=== PATIENT | female | born 1975 | race Caucasian/White ===

== ENCOUNTER 2016-08-14 10:53 | Day surgery (SDC) | payer BC ==
--- NOTE | ~2016-08-14 | EGD ---
EGD REPORT [facility] [address] [address] NAME: RU MC : 71 STATUS : REG [facility]#: [id number] AGE: 40 ADM/REG DATE : 08/14/16 MR#: [id number] REPORT SERV DATE: 08/14/16 DICTATED BY: DATE: REPORT STATUS : Draft TRANSCRIBED BY: [employer] DATE: 08/14/16 Endoscopy Center Patient Name: Ru Mc Date of : 1975 Attending MD: ABDULKADIR MCBRIDE MD Procedure Date No Time: 08/14/2016 Procedure: Colonoscopy Indications: Abdominal pain in the left upper quadrant, Abdominal pain in the right lower quadrant, Clinically significant diarrhea of unexplained origin, Change in bowel habits, Constipation, Diarrhea Referring MD: Whitley Delgado Medicines: Monitored Anesthesia Care Complications: No immediate complications. Procedure: Pre-Anesthesia Assessment: - ASA Grade Assessment: II - A patient with mild systemic disease. After I obtained informed consent, the scope was passed under direct vision. Throughout the procedure, the patient's blood pressure, pulse, and oxygen saturations were monitored continuously. The [facility] [id number] was introduced through the anus and advanced to the terminal ileum, with identification of the appendiceal orifice and IC valve. The colonoscopy was performed without difficulty. The patient tolerated the procedure well. The quality of the bowel preparation was good. Findings: The digital rectal exam was normal. Pertinent negatives include no palpable rectal lesions. The terminal ileum appeared normal. Hemorrhoids were found during retroflexion and were mild. The ascending colon appeared normal. Biopsies were taken with a cold forceps for evaluation of microscopic colitis. The sigmoid colon appeared normal. Biopsies were taken with a cold forceps for evaluation of microscopic colitis. Impression: - The examined portion of the ileum was normal. - Hemorrhoids. - The ascending colon is normal. Biopsied. - The sigmoid colon is normal. Biopsied. Recommendation: - Patient has a contact number available for emergencies. The signs and symptoms of potential delayed complications were discussed with the patient. Return to EGD REPORT [address] [address] NAME: RU MC : 71 STATUS : REG [facility]#: [id number] AGE: 40 ADM/REG DATE : 08/14/16 MR#: [id number] REPORT SERV DATE: 08/14/16 DICTATED BY: DATE: REPORT STATUS : Draft TRANSCRIBED BY: [employer] DATE: 08/14/16 normal activities tomorrow. Written discharge instructions were provided to the patient. - Regular diet. - Continue present medications. - Await pathology results. - Return to GI clinic in 1 month. Procedure Code(s): --- Professional --- 62465, Colonoscopy, flexible, proximal to splenic flexure; with biopsy, single or multiple Diagnosis Code(s): --- Professional --- K64.9, Unspecified hemorrhoids R10.12, Left upper quadrant pain R10.31, Right lower quadrant pain R19.7, Diarrhea, unspecified R19.4, Change in bowel habit K59.00, Constipation, unspecified CPT copyright 2013 [employer]. All rights reserved. The codes documented in this report are preliminary and upon claims manager review may be revised to meet current compliance requirements. ABDULKADIR MCBRIDE MD 08/14/2016 1:14 PM This report has been signed electronically. Number of Addenda: 0 Note Initiated On: 08/14/2016 12:37 PM Scope Withdrawal Time 0 hours 7 minutes 16 seconds [address] [id number]
--- NOTE | ~2016-08-14 | EGD ---
EGD REPORT [facility] [address] [address] NAME: RU MC : 71 STATUS : REG [facility]#: [id number] AGE: 40 ADM/REG DATE : 08/14/16 MR#: [id number] REPORT SERV DATE: 08/14/16 DICTATED BY: ABDULKADIR MCBRIDE DATE: 08/14/16 REPORT STATUS : Draft [facility]ANS[facility]IBED [facility]: [facility] DATE: 08/14/16 Endoscopy Center Patient Name: Ru Mc Date of : 1975 Attending MD: ABDULKADIR MCBRIDE MD Procedure Date No Time: 08/14/2016 Procedure: Upper GI endoscopy Indications: Abdominal pain in the left upper quadrant Referring MD: Whitley Delgado Medicines: Monitored Anesthesia Care Complications: No immediate complications. Procedure: Pre-Anesthesia Assessment: - ASA Grade Assessment: II - A patient with mild systemic disease. - ASA Grade Assessment: II - A patient with mild systemic disease. After obtaining informed consent, the endoscope was passed under direct vision. Throughout the procedure, the patient's blood pressure, pulse, and oxygen saturations were monitored continuously. The [facility] H190 [id number] was introduced through the mouth, and advanced to the second part of duodenum. The upper GI endoscopy was accomplished without difficulty. The patient tolerated the procedure well. Findings: The examined esophagus was normal. The Z-line was irregular and was found at the gastroesophageal junction. Biopsies were taken with a cold forceps for histology. Striped mildly erythematous mucosa without bleeding was found in the gastric antrum. Biopsies were taken with a cold forceps for histology. The duodenal bulb and 2nd part of the duodenum were normal. Biopsies were taken with a cold forceps for histology. The cardia and gastric fundus were normal on retroflexion. Impression: - Normal esophagus. - Z-line irregular, at the gastroesophageal junction. Biopsied. - Erythematous mucosa in the antrum. Biopsied. - Normal duodenal bulb and 2nd part of the duodenum. Biopsied. Recommendation: - Await pathology results. - Follow an antireflux regimen. EGD REPORT [facility] [address] [address] NAME: RU MC : 71 STATUS : REG [facility]#: [id number] AGE: 40 ADM/REG DATE : 08/14/16 MR#: [id number] REPORT SERV DATE: 08/14/16 DICTATED BY: ABDULKADIR MCBRIDE DATE: 08/14/16 REPORT STATUS : Draft TRANSCRIBED BY: [employer] DATE: 08/14/16 Procedure Code(s): --- Professional --- 13311, Esophagogastroduodenoscopy, flexible, transoral; with biopsy, single or multiple Diagnosis Code(s): --- Professional --- K22.8, Other specified diseases of esophagus K31.9, Disease of stomach and duodenum, unspecified R10.12, Left upper quadrant pain CPT copyright 2013 [employer]. All rights reserved. The codes documented in this report are preliminary and upon compounder flavorings review may be revised to meet current compliance requirements. ABDULKADIR MCBRIDE MD 08/14/2016 12:59 PM This report has been signed electronically. Number of Addenda: 0 Note Initiated On: 08/14/2016 12:34 PM Scope Withdrawal Time 0 hours 0 minutes 0 seconds [address] [id number]
[~2016-08-14 10:53] MED LIST: ADDER10 PO; ADDERALL20 MG PO; ADDERALL30 MG PO; ADVIL PO; AMITIZA24 PO; AMITIZA8 MCG PO; ARMOUR THYRO60 MG PO; AT25 PO; BUSPAR10 PO; BUSPAR15 M1 PO; FLINSTONE VITAMINS; HCTZ25B PO; HYDROCHLOROT25 MG PO; HYDROCHLOROT50 MG PO; IBU400 PO; IBU600 PO; IBU800 PO; IMITREX50 PO; LIDODERM TOP; LOP25 PO; LORT7 PO; LORTAB10 PO; MACROBID PO; MAXIMUM D3 PO; MOTRIN IB200 MG PO; NEXIUM40 PO; OXYCONTIN15 MG PO; PERCOCET 10/3251 TAB PO; PERCOCET1 TA4 PO; PERCOCET1 TA5 PO; PLAQ200B PO; PROVHFA INH; PYR200 PO; REQUIP5 PO; SKELAXIN8 PO; SYMBICORT 80/4.1 INH INH; SYN.05 PO; SYN075 PO; TOPAMAX100 PO; TOPAMAX25 PO; TORATAB PO; VALIUM10 MG PO; VITAMIN C OTC PO; VYVANSE70 MG OR; ZESTORETIC1 TAB PO; ZOFRAN8 PO; ZOL100 PO; ZOL50 PO
[2017-01-21] MEDS ORDERED: ADDERALL20 MG PO (06:49)
[2017-01-21] MEDS ORDERED: ARMOUR THYRO60 MG PO (06:49)
[2017-01-21] MEDS ORDERED: BUSPAR15 M1 PO (06:51)
[2017-01-21] MEDS ORDERED: VALIUM10 MG PO (06:51)
[2017-01-21] MEDS ORDERED: PERCOCET 10/3251 TAB PO (06:52)
[2017-01-21] MEDS ORDERED: OXYCONTIN15 MG PO (06:52)
[2017-01-21] MEDS ORDERED: ZOL100 PO (06:54)
[2017-01-22] MEDS ORDERED: ATEN25 PO (07:49)
[2017-01-22] MEDS ORDERED: ZOFRAN8 PO (07:52)
[2017-01-22] MEDS ORDERED: AUG875 PO (07:53)
[2017-01-22] MEDS ORDERED: TOPAMAX100 PO (08:00)
[2017-01-22] MEDS ORDERED: IMITREX50 PO (08:01)
[2017-01-22] MEDS ORDERED: CALCIUM +VIT D PO (08:02)
[2017-01-22] MEDS ORDERED: VITAMIN D PO (08:03)
[2017-01-22] MEDS ORDERED: NEXIUM40 PO (08:04)
[2017-01-22] MEDS ORDERED: IBU600 PO (08:04)
[2017-01-22] MEDS ORDERED: PROVHFA INH (08:05)
[2017-01-22] MEDS ORDERED: MULTIVIT/MIN PO (08:06)
[2017-01-22] MEDS ORDERED: PLAQ200B PO (08:07)
[2017-01-22] MEDS ORDERED: MOVANTIK25 MG PO (08:15)
== END 2016-08-14 23:59 | disposition home health service (06) ==
LOC: DMU 10:53
PROVIDERS: Internal Medicine Gastroenterology
PROC: 0DB48ZX Excision of Esophagogastric Junction, Via Natural or Artificial Opening Endoscopic, Diagnostic (ICD-10-PCS; 2016-08-14)
PROC: 0DB98ZX Excision of Duodenum, Via Natural or Artificial Opening Endoscopic, Diagnostic (ICD-10-PCS; 2016-08-14)
PROC: 0DB68ZX Excision of Stomach, Via Natural or Artificial Opening Endoscopic, Diagnostic (ICD-10-PCS; 2016-08-14)
PROC: 0DBN8ZX Excision of Sigmoid Colon, Via Natural or Artificial Opening Endoscopic, Diagnostic (ICD-10-PCS; principal; 2016-08-14 11:30)
PROC: 0DBK8ZX Excision of Ascending Colon, Via Natural or Artificial Opening Endoscopic, Diagnostic (ICD-10-PCS; 2016-08-14 11:30)
DX: K29.80 Duodenitis without bleeding (principal); K29.50 Unspecified chronic gastritis without bleeding; K64.9 Unspecified hemorrhoids; G43.909 Migraine, unspecified, not intractable, without status migrainosus; I47.1 Supraventricular tachycardia; F90.9 Attention-deficit hyperactivity disorder, unspecified type; E03.9 Hypothyroidism, unspecified; R56.9 Unspecified convulsions; I10 Essential (primary) hypertension; K21.0 Gastro-esophageal reflux disease with esophagitis; J45.909 Unspecified asthma, uncomplicated; Z87.442 Personal history of urinary calculi; Z88.2 Allergy status to sulfonamides; Z90.49 Acquired absence of other specified parts of digestive tract; Z88.5 Allergy status to narcotic agent; Z88.8 Allergy status to other drugs, medicaments and biological substances
CPT/HCPCS: 88305

== ENCOUNTER 2016-10-29 16:03 | Observation (INO) | payer BC ==
--- NOTE | ~2016-10-29 | PRECARD ---
H&P [address] [place]. [address] NAME: RU JAMES : [birth year] STATUS : ADM Edvin PAT#: [id number] AGE: 41 ADM/REG DATE : 10/29/16 MR#: [id number] REPORT SERV DATE: 10/30/16 DICTATED BY: ALEK PANIAGUA DATE: 10/30/16 REPORT STATUS : Draft TRANSCRIBED BY: [employer] DATE: 10/30/16 DATE OF ADMISSION: 10/29/2016 The patient is a 41-year-old white female who presented to the emergency room with a complaint of oppressive substernal chest discomfort of around eight hours duration. The patient had negative cardiac enzymes and no acute changes on electrocardiogram. The patient had a normal cardiac catheterization, done 10/21/2014. She also has been seen by Dr. Mauricio Alvares and has a loop recorder implanted. Apparently, there have been no significant arrhythmias recorded from the loop recorder. PAST MEDICAL HISTORY: Remarkable for attention deficit disorder, anxiety, hysterectomy, and cholecystectomy. 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 FAMILY HISTORY: Positive for coronary disease (mother). REVIEW OF SYSTEMS: The patient denies cough, wheeze, sputum production, vomiting, diarrhea, or dysuria. PHYSICAL EXAMINATION: VITAL SIGNS: Blood pressure is 117/76, heart rate is 100 and regular, respirations 16 and nonlabored. HEENT: Unremarkable. NECK: Shows no jugular venous distention with good carotid upstroke. CHEST: Clear. CARDIOVASCULAR: PMI is lateral to the mid clavicular line. S1 is normal. S2 is narrowly split. No gallop is present. ABDOMEN: Soft, nontender with normal bowel sounds. EXTREMITIES: Show no cyanosis, clubbing, or edema. SKIN: Warm and dry with no pallor or icterus. NEURO/PSYCH: The patient is oriented x3 with appropriate affect. LAB DATA: Hematocrit is 38.8. Potassium 3.8, BUN 19, creatinine 0.9. Troponin is less than 0.02. IMPRESSION: 1. Atypical chest pain. 2. Attention deficit disorder. 3. Anxiety disorder. PLAN: 1. Nuclear perfusion scan. 2. Echocardiogram. H&P [address] [address] NAME: RU JAMES : 71 STATUS : ADM Edvin PAT#: [id number] AGE: 41 ADM/REG DATE : 10/29/16 MR#: [id number] REPORT SERV DATE: 10/30/16 DICTATED BY: ALEK PANIAGUA DATE: 10/30/16 REPORT STATUS : Draft TRANSCRIBED BY: [employer] DATE: 10/30/16 SS/ASTER Alek Paniagua M.D., F.A.C.C. / [id number] CC: Alek Rodriguez M.D., [facility]
[2016-10-29 17:24] LABS: BASOPHILS 0.6 %; BASOPHILS ABSOLUTE 0.04 10/3/uL (0.0-0.16); EOSINOPHILS 2.1 %; EOSINOPHILS ABSOLUTE 0.15 10/3/uL (0.0-0.53); ER CBC TAT 0 Hrs 03 Mins; HEMATOCRIT 38.8 % (36.0-48.0); IMMATURE GRANULOCYTES 0.1 %; IMMATURE GRANULOCYTES ABSOLUTE 0.01 10/3/uL (0.0-0.11); LYMPHOCYTES 27.3 %; LYMPHOCYTES ABSOLUTE 1.92 10/3/uL (0.67-4.30); MEAN CORPUS HGB CONC 33.5 g/dL (32.0-36.0); MEAN CORPUSCULAR HEMOGLOB 29.7 pg (26.0-34.0); MEAN CORPUSCULAR VOLUME 88.8 fL (80-100); MEAN PLATELET VOLUME 9.2 fL (9.2-13.0); MONOCYTES 4.4 %; MONOCYTES ABSOLUTE 0.31 10/3/uL (0.21-1.20); NEUTROPHILS 65.5 %; NEUTROPHILS ABSOLUTE 4.61 10/3/uL (2.02-8.40); PLATELET COUNT 315 10/3/uL (150-400); RBC DISTRIBUTION WIDTH 13.2 % (12.0-16.0); RED CELL COUNT 4.37 10/6/uL (4.0-5.6)
[2016-10-29 17:27] LABS: MANUAL DIFF NO %
[2016-10-29 17:34] LABS: PARTIAL THROMBO TIME 30.3 SEC (22.5-37.2)
[2016-10-29 17:35] LABS: INTERNATIONAL NORMAL RATI 1.1 UNITS (-)
[2016-10-29 17:41] LABS: CALCIUM, SERUM 9.4 MG/DL (8.5-10.4); CHEST PAIN PROFILE TAT 0 Hrs 20 Mins; CHLORIDE, SERUM 109 MMOL/L (96-112); CO2 (CARBON DIOXIDE) 29 MMOL/L (24-34); GFR AFRICAN AMERICAN 91 ML/MIN (>=60); GFR NON AFRICAN AMERICAN 78 ML/MIN (>=60); GLUCOSE, SERUM 100 MG/DL (60-99); SODIUM, SERUM 143 MMOL/L (135-148); TROPONIN I <0.02 NG/ML (<0.05)
[2016-10-29 17:47] LABS: BUN (BLOOD UREA NITROGEN) 17 MG/DL (6-23); POTASSIUM, SERUM 3.8 MMOL/L (3.5-5.3)
[2016-10-29] MEDS ORDERED: OXYCONTIN15 MG PO (19:45)
[2016-10-29] MEDS ORDERED: IMITREX100 MG PO (19:45)
[2016-10-29] MEDS ORDERED: MOVANTIK25 MG PO (19:46)
[2016-10-29] MEDS ORDERED: ZOFRAN8 PO (19:46)
[2016-10-29] MEDS ORDERED: PERCOCET 10/3251 TAB PO (19:47)
[2016-10-29] MEDS ORDERED: ARMOUR THYRO60 MG PO (19:48)
[2016-10-29] MEDS ORDERED: REQUIP5 PO (19:50)
[2016-10-29] MEDS ORDERED: NEXIUM40 PO (19:50)
[2016-10-29] MEDS ORDERED: ADDERALL20 MG PO (19:50)
[2016-10-29] MEDS ORDERED: BUSPAR15 M1 PO (19:53)
[2016-10-29] MEDS ORDERED: HYDROCHLOROT50 MG PO (19:53)
[2016-10-29] MEDS ORDERED: ZOL100 PO (19:54)
[2016-10-29] MEDS ORDERED: IBU600 PO (19:54)
[2016-10-29] MEDS ORDERED: TOPAMAX100 PO (19:55)
[2016-10-29] MEDS ORDERED: PLAQ200B PO (19:56)
[2016-10-29] MEDS ORDERED: VALIUM10 MG PO ×2 (19:57→19:58)
[2016-10-29] MEDS ORDERED: KLOR-CON M2020 MEQ PO (19:59)
[2016-10-29] MEDS ORDERED: PROVHFA INH (20:00)
[2016-10-29] MEDS ORDERED: CALCIUM OTC PO (20:02)
[2016-10-29] MEDS ORDERED: VITAMIN D3 OTC PO (20:02)
[2016-10-29] MEDS ORDERED: VITAMIN C OTC PO (20:03)
[2016-10-30 02:04] LABS: ASCORBIC ACID (UR NOT ORDER) NEG (NEG); BILIRUBIN, URINE NEGATIVE (NEG); KETONE, URINE NEGATIVE (NEG); LEUKOCYTE ESTERASE(NOT OR NEG (NEG); WBC (NOT ORDERED) (RFLEX) 2 (0-5)
[2016-10-30 04:29] LABS: BASOPHILS 0.3 %; BASOPHILS ABSOLUTE 0.02 10/3/uL (0.0-0.16); EOSINOPHILS 1.5 %; HEMATOCRIT 36.9 % (36.0-48.0); HEMOGLOBIN 12.6 g/dL (12.0-16.0); IMMATURE GRANULOCYTES 0.2 %; IMMATURE GRANULOCYTES ABSOLUTE 0.01 10/3/uL (0.0-0.11); LYMPHOCYTES ABSOLUTE 1.97 10/3/uL (0.67-4.30); MEAN CORPUS HGB CONC 34.1 g/dL (32.0-36.0); MEAN CORPUSCULAR HEMOGLOB 30.3 pg (26.0-34.0); MEAN CORPUSCULAR VOLUME 88.7 fL (80-100); MEAN PLATELET VOLUME 8.9 fL (9.2-13.0); MONOCYTES 6.1 %; NEUTROPHILS 61.9 %; NEUTROPHILS ABSOLUTE 4.07 10/3/uL (2.02-8.40); PLATELET COUNT 282 10/3/uL (150-400); RBC DISTRIBUTION WIDTH 13.3 % (12.0-16.0); RED CELL COUNT 4.16 10/6/uL (4.0-5.6); WHITE BLOOD CELLS 6.6 10/3/uL (4.5-10.5)
[2016-10-30 04:31] LABS: MANUAL DIFF NO %
[2017-01-21] MEDS ORDERED: ARMOUR THYRO60 MG PO (06:49)
[2017-01-21] MEDS ORDERED: ADDERALL20 MG PO (06:49)
[2017-01-21] MEDS ORDERED: VALIUM10 MG PO (06:51)
[2017-01-21] MEDS ORDERED: BUSPAR15 M1 PO (06:51)
[2017-01-21] MEDS ORDERED: PERCOCET 10/3251 TAB PO (06:52)
[2017-01-21] MEDS ORDERED: OXYCONTIN15 MG PO (06:52)
[2017-01-21] MEDS ORDERED: ZOL100 PO (06:54)
[2017-01-22] MEDS ORDERED: ATEN25 PO (07:49)
[2017-01-22] MEDS ORDERED: ZOFRAN8 PO (07:52)
[2017-01-22] MEDS ORDERED: AUG875 PO (07:53)
[2017-01-22] MEDS ORDERED: TOPAMAX100 PO (08:00)
[2017-01-22] MEDS ORDERED: IMITREX50 PO (08:01)
[2017-01-22] MEDS ORDERED: CALCIUM +VIT D PO (08:02)
[2017-01-22] MEDS ORDERED: VITAMIN D PO (08:03)
[2017-01-22] MEDS ORDERED: NEXIUM40 PO (08:04)
[2017-01-22] MEDS ORDERED: IBU600 PO (08:04)
[2017-01-22] MEDS ORDERED: PROVHFA INH (08:05)
[2017-01-22] MEDS ORDERED: MULTIVIT/MIN PO (08:06)
[2017-01-22] MEDS ORDERED: PLAQ200B PO (08:07)
[2017-01-22] MEDS ORDERED: MOVANTIK25 MG PO (08:15)
== END 2016-10-31 16:35 | disposition home or self-care (01) ==
LOC: ER 16:03 → CDU1 19:27 → CDU2 20:23
PROVIDERS: Emergency Medicine; Internal Medicine Interventional Cardiology
DX: R07.89 Other chest pain (principal); F90.9 Attention-deficit hyperactivity disorder, unspecified type; F41.9 Anxiety disorder, unspecified; E03.9 Hypothyroidism, unspecified; R00.0 Tachycardia, unspecified; Z90.49 Acquired absence of other specified parts of digestive tract; Z90.710 Acquired absence of both cervix and uterus; Z98.890 Other specified postprocedural states; Z79.899 Other long term (current) drug therapy
CPT/HCPCS: 71010; 80048; 80061; 81001; 83735; 83880; 84460; 84484; 85025; 85610; 85730; 93005; 93306; 96374; 96375; 96376; 99285; A9270-GY; G0378; J1170; J2405